=== PATIENT | female | born 1960 | race Caucasian/White ===

== ENCOUNTER → 2019-11-29 | Outpatient (CLI) | payer MEDICARE, BC | END | disposition home or self-care (01) | LOC: US 10:00 | PROVIDERS: ATTEND Internal Medicine Nephrology | DX: I12.9 Hypertensive chronic kidney disease with stage 1 through stage 4 chronic kidney disease, or unspecified chronic kidney disease (principal); N18.4 Chronic kidney disease, stage 4 (severe); N28.89 Other specified disorders of kidney and ureter ==

== ENCOUNTER → 2022-07-09 | Outpatient (CLI) | payer MEDICARE, BC | END | disposition home or self-care (01) | LOC: US 06-26 09:30 | PROVIDERS: ATTEND Nurse Practitioner Family | DX: N28.1 Cyst of kidney, acquired (principal); N18.6 End stage renal disease ==